=== PATIENT | male | born 1985 | race African-American/Black ===

== ENCOUNTER 2018-04-19 17:08 | Emergency (ER) | payer OTHER, MEDICARE ==
[~2018-04-19] VITALS: Ht 177.8 cm; Wt 94.1 kg
[2018-04-19 17:15] VITALS: BP 128/83; Ht 177.8 cm; Wt 94.1 kg
[2018-04-19] MEDS ORDERED: TORADOL10 MG PO (18:50)
== END 2018-04-19 19:06 | disposition home or self-care (01) ==
LOC: D.ER 17:08
DX: R07.89 Other chest pain (principal); V49.9XXA Car occupant (driver) (passenger) injured in unspecified traffic accident, initial encounter; Y93.89 Activity, other specified; Y92.410 Unspecified street and highway as the place of occurrence of the external cause